=== PATIENT | female | born 1955 | race Caucasian/White ===

== ENCOUNTER → 2023-04-22 15:04 | Outpatient (REF) | payer MEDICARE, OTHER, SELFPAY | LOC: RAD 15:04 | PROVIDERS: ATTENDING PHYSICIAN Urology; FAMILY PHYSICIAN Family Medicine | DX: N30.10 Interstitial cystitis (chronic) without hematuria (principal); N39.0 Urinary tract infection, site not specified | CPT/HCPCS: 76775; 76856 ==